=== PATIENT | male | born 1965 | race African-American/Black ===

== ENCOUNTER 2022-12-07 10:23 | Emergency (ER) | payer MEDICARE, SELFPAY ==
[2022-12-07 10:49] VITALS: BP 115/91; PULSE 73; RESP 16; TEMP 36.2; O2SAT 100
--- NOTE | 2022-12-07 10:49 | ED.URI ---
HPI - URI/Sore Throat General Chief Complaint: Upper Respiratory Infection Stated Complaint: headache,congestion,sorethroat Time Seen by Provider: 12/07/22 10:49 Source: patient Mode of arrival: ambulatory Limitations: no limitations History of Present Illness HPI Narrative: 57 year male presents with complaint of nasal congestion, sinus pressure and pain, bilateral ear fullness, postnasal drainage, intermittent sore throat for the past 2 and half weeks. Patient has tried [id number] DayQuil NyQuil cold and Sinus without relief of symptoms. No chest pain or shortness of breath. Patient states he travels back and forth between [place] and [place] due to his living in [place]. Reports he a history of sinus infections and usually allergies are worse when in [place]. All systems reviewed and negative except as noted above. Related Data Home Medications Medication Instructions Recorded Confirmed cyclobenzaprine 10 mg tablet 10 mg PO PRN PRN Muscle Pain 12/07/22 12/07/22 gabapentin 300 mg capsule 300 mg PO TID 12/07/22 12/07/22 hydrocodone 10 mg-acetaminophen 1 tablet PO TID PRN back pain 12/07/22 12/07/22 325 mg tablet Allergies Allergy/AdvReac Type Severity Reaction Status Date / Time No Known Allergies Allergy Verified 12/07/22 10:36 Review of Systems Review of Systems: CONSTITUTIONAL: Denies fever, chills, or sweats. EYES: Denies visual changes, redness, or discharge. ENT: Reports rhinorrhea, congestion, postnasal drainage, sinus pressure,sore throat, ears full. CARDIOVASCULAR: Denies chest pain, palpitations, or edema. RESPIRATORY: Denies cough or dyspnea. GASTROINTESTINAL: Denies abdominal pain, nausea, vomiting, or diarrhea. GENITOURINARY: Denies dysuria or hematuria. SKIN: Denies rash or itching. MUSCULOSKELETAL: Denies back pain, joint pain, or myalgia. NEUROLOGIC: Denies headache, numbness, or weakness. PSYCHIATRIC: Denies anxiety or depression. All other systems reviewed are negative, except as documented in HPI. PMFSH Comments At time of signature, agree with nursing past medical, surgical, social and family history. There is no relevant family history pertinent to the presenting complaint. Exam Narrative: GENERAL: This is a well-nourished, well-developed patient, in no apparent distress. HEAD: normocephalic, atraumatic. EYES: PERRL. Sclera clear/white. Vision is grossly intact. EARS: External ears normal, auditory canals clear and without drainage, Fluid bilateral TMs without erythema. NOSE: External nose normal with Prelim nasal drainage, moderate congestion, bilateral maxillary sinus tenderness. THROAT: Mucous membranes moist, Erythema with postnasal drainage. NECK: Neck supple, non-tender without lymphadenopathy, masses or thyromegaly. CARDIOVASCULAR: Regular rate and rhythm without murmurs, gallops, or rubs. RESPIRATORY: Clear to auscultation. Breath sounds equal bilaterally. No wheezes, rales, or rhonchi. SKIN: warm, Dry, intact with no suspicious lesions or rash, good texture and turgor. NEURO: awake, alert, and oriented to person, place and time. There were no obvious focal neurologic abnormalities. EXTREMITIES: No joint tenderness, effusion, or edema noted. Course Course Level of Care: Express Care Visit Vital Signs Vital signs: Vital Signs Temperature 36.2 C L 12/07/22 10:49 Pulse Rate 73 12/07/22 10:49 Respiratory Rate 16 12/07/22 10:49 Blood Pressure 115/91 H 12/07/22 10:49 Pulse Oximetry 100 12/07/22 10:49 Oxygen Delivery Room Air 12/07/22 10:49 Temperature 36.2 C L 12/07/22 10:49 Pulse Rate 73 12/07/22 10:49 Respiratory Rate 16 12/07/22 10:49 Blood Pressure 115/91 H 12/07/22 10:49 Pulse Oximetry 100 12/07/22 10:49 Oxygen Delivery Room Air 12/07/22 10:49 Reviewed MDM - URI/Sore Throat MDM Narrative Medical decision making narrative: Patient is aware of diagnosis, understands and agrees to julita
== END 2022-12-07 10:55 | disposition home or self-care (01) ==
PROVIDERS: Emergency Provider Nurse Practitioner Family
DX: J01.90 Acute sinusitis, unspecified (principal)
CPT/HCPCS: 99203; G0463